=== PATIENT | female | born 1945 | race Caucasian/White ===

== ENCOUNTER 2018-11-22 17:51 | Emergency (ER) | payer MEDICARE ==
[~2018-11-22] VITALS: Ht 165.1 cm; Wt 85.5 kg
[~2018-11-22 17:51] MED LIST: ONDA4TAB12 PO; ONDA4TAB6 PO; PANT-47 PO
--- NOTE | 2018-11-22 18:49 | NUR ---
PT REQUESTING TO HAVE HER ZOLOFT REFILLED - SHE TAKES 100MG DAILY. WILL ASK PROVIDER IF WE CAN REFILL THIS FOR HER. PT IS BETWEEN 'Ken CURRENTLY.
[2018-11-22] MEDS ORDERED: IRBE150T51 PO (18:54)
[2018-11-22] MEDS ORDERED: SERT100T10 PO (18:54)
[2018-11-22 19:16] VITALS: BP 137/74
== END 2018-11-22 19:19 | disposition home or self-care (01) ==
LOC: ER 17:51
DX: R00.1 Bradycardia, unspecified (principal); M54.5 Low back pain; K21.9 Gastro-esophageal reflux disease without esophagitis; G89.29 Other chronic pain; Z90.710 Acquired absence of both cervix and uterus; Z98.51 Tubal ligation status; Z98.890 Other specified postprocedural states; Z88.5 Allergy status to narcotic agent; Z79.899 Other long term (current) drug therapy
CPT/HCPCS: 71045; 72040; 72100; 93005; 99283